=== PATIENT | male | born 1965 | race Caucasian/White ===

== ENCOUNTER → 2020-10-01 | Day surgery (SDC) | payer OTHER ==
[~2020-10-01] VITALS: Ht 170.2 cm; Wt 81.6 kg
[~2020-10-01] MED LIST: PERCOCET 7.5/321 TAB PO
[2020-10-01 07:58] LABS: BASOPHIL 0.8 % (0-2); EOSINOPHIL 4.6 % (0-5); HCT 43.9 % (42.0-52.0); HGB 15.3 g/dl (13.2-18.0); MCH 31.4 pg (25.0-31.0); MCHC 34.9 g/dL (32.0-36.0); MONOCYTE 10.5 % (0-12); MPV 10.9 fL (6.0-9.5); NEUTROPHIL 57.5 % (41-80); NRBC 0; PLT 187 K/uL (150-400); RBC 4.88 M/uL (4.70-6.00); RDW 12.8 % (11.5-14.0); WBC 6.3 K/uL (4.0-10.5)
== END | disposition home or self-care (01) ==
LOC: FAS 09-17 11:30
PROVIDERS: Legal Medicine
DX: M75.121 Complete rotator cuff tear or rupture of right shoulder, not specified as traumatic (principal); M19.011 Primary osteoarthritis, right shoulder; I10 Essential (primary) hypertension; Z20.822 Contact with and (suspected) exposure to COVID-19; Z98.890 Other specified postprocedural states
CPT/HCPCS: 36415; 85025; C1713; J0171; J0690; J2250; J2704; J2795; J3010; J7120